=== PATIENT | male | born 1955 | race Caucasian/White ===

== ENCOUNTER 2017-07-22 02:17 | Emergency (ER) | payer OTHER ==
[~2017-07-22] VITALS: Ht 180.3 cm; Wt 106.6 kg
[2017-07-22 02:54] VITALS: BP 126/84
[2017-07-22 03:29] LABS: ABSOLUTE BASOPHIL COUNT 0.1 /CUMM (0.0-0.2); ABSOLUTE EOSINOPHIL COUNT 0.2 /CUMM (0.0-0.7); ABSOLUTE GRANULOCYTE CT 8.4 /CUMM (1.4-6.5); ABSOLUTE LYMPH COUNT 2.3 /CUMM (1.2-3.4); ABSOLUTE MONOCYTE COUNT 0.9 /CUMM (0.10-0.60); BASOPHIL % 0.5 % (0.0-2.0); EOSINOPHIL % 1.5 % (0-5); GRANULOCYTE % 70.9 % (42.2-75.2); HEMATOCRIT 43.7 % (42-52); MEAN CORPUSCULAR HGB 29.5 PG (27.0-31.0); MEAN CORPUSCULAR HGB CONC 32.9 G/DL (33.0-37.0); MEAN CORPUSCULAR VOLUME 89.8 FL (80.0-94.0); MEAN PLATELET VOLUME 9.9 FL (7.4-10.4); PLATELET COUNT 244 /CUMM (130-400); RBC DISTRIBUTION WIDTH 13.3 % (11.5-14.5); RED BLOOD CELL CT 4.87 /CUMM (4.70-6.10); WHITE BLOOD CELL COUNT 11.9 /CUMM (4.8-10.8)
--- NOTE | 2017-07-22 03:42 | ED UPPER/LOWER EXTREMITY COMPL ---
History of Present Illness General Chief Complaint: Lower Extremity Problems Stated Complaint: LEFT KNEE PAIN AND SWOLLEN Source: patient, family, old records Exam Limitations: no limitations Vital Signs & Intake/Output Vital Signs & Intake/Output Vital Signs Date Time Temp Pulse Resp B/P B/P Pulse O2 O2 Flow FiO2 Mean Ox Delivery Rate 07/22 0254 96.7 86 20 126/84 97 Allergies Coded Allergies: NO KNOWN ALLERGIES (11/04/12) Core Measure Meds Pre-Hospital aspirin Triage Note: PER PAIN TO [facility]LE FOR WEEKS SAW DR BANUELOS AND IS BEING SCHEDULED FOR OUTPT US AND XR. TONIGHT CALF SKIN IS TIGHT. SO DECIDED IT NEEDS TO BE SEEN NOW Triage Nurses Notes Reviewed? yes Onset: Last week Duration: week(s):, constant, continues in ED, getting worse Timing: recent history Severity: moderate, severe Pain/Injury Location: Bilateral: Leg. Modifying Factors: Improves With: rest. Worsens With: jarring, movement. Associated Symptoms: swelling, GCS 15 since, stiffness HPI: 2 weeks prior to admission patient notes left greater than right swelling in the lower legs causing pain with weightbearing and palpation. He saw his PMD and is scheduled for ultrasound and x-ray on Sunday prescribed Mobic for discomfort. He denies fever chills nausea vomiting diarrhea abdominal pain chest pain shortness breath headache dysuria rash bleeding injury. Past History Travel History Traveled to [place] past 21 day No Medical History Any Pertinent Medical History? see below for history Neurological: NONE EENT: NONE Cardiovascular: myocardial infarction Respiratory: POST NASAL DRIP Gastrointestinal: NONE Hepatic: NONE Renal: NONE Musculoskeletal: NONE Psychiatric: NONE Endocrine: NONE History of MRSA: No History of VRE: No History of CDIFF: No Surgical History Surgical History: non-contributory Psychosocial History Who do you live with Family What is your primary language [place] Tobacco Use: Current Not Daily Daily Tobacco Use Amount/Type: =< 4 Cigarettes daily Family History Hx Contributory? No Review of Systems Review of Systems Constitutional: Reports: no symptoms. EENTM: Reports: no symptoms. Respiratory: Reports: no symptoms. Cardiovascular: Reports: see HPI, edema. Gastrointestinal/Abdominal: Reports: no symptoms. Genitourinary: Reports: no symptoms. Musculoskeletal: Reports: see HPI, muscle pain. Skin: Reports: no symptoms. Neurological/Psychological: Reports: no symptoms. Hematologic/Endocrine: Reports: no symptoms. Immunological: Reports: no symptoms. All Other Systems: Reviewed and Negative Physical Exam Physical Exam General Appearance: well developed/nourished, alert, awake, anxious, mild distress, obese Head: atraumatic, normal appearance Eyes: Bilateral: normal appearance, PERRL, EOMI. Ears, Nose, Throat: normal pharynx, normal ENT inspection, hearing grossly normal Neck: normal inspection, supple, full range of motion, no midline tenderness Cardiovascular/Respiratory: normal breath sounds, normal peripheral pulses, regular rate/rhythm, no respiratory distress Peripheral Pulses: 4+ carotid (R), 4+ carotid (L) Back: normal inspection, normal range of motion, no vertebral tenderness Shoulder Left: normal range of motion, normal inspection Shoulder Right: normal range of motion, normal inspection Elbow Left: normal range of motion, normal inspection Elbow Right: normal range of motion, normal inspection Hand Left: normal inspection, normal range of motion Hand Right: normal inspection, normal range of motion Upper Extremity Reflexes: 2+: bicep (R), bicep (L). Leg Left: normal range of motion, swelling, tenderness, soft tissue tenderness Leg Right: normal range of motion, swelling, pain, soft tissue tenderness Hip Left: normal range of motion, normal inspection Hip Right: normal range of motion, normal inspection Knee Left: normal range of motion, normal inspection Knee Right: normal range of motion, normal inspection Foot Left: normal inspection, normal range of motion Foot Right: normal inspection, normal range of motion Lower Extremity Reflexes: 2+: knee (R), knee (L). Neurologic/Tendon: normal sensation, normal motor functions, normal tendon functions Skin: intact, normal color, warm/dry Lymphatic: no anterior cervical russel Progress Differential Diagnosis: CHF, DVT, dependent edema Plan of Care: Orders Procedure Date/time Status TROPONIN LEVEL 07/22 306 Complete MAGNESIUM 07/22 306 Complete D-DIMER 07/22 306 Complete COMPREHENSIVE METABOLIC PANEL 07/22 306 Complete CBC WITHOUT DIFFERENTIAL 07/22 306 Complete B-TYPE NATRIURETIC PEP (BNP) 07/22 306 Complete EKG 07/22 306 Active Laboratory Tests 07/22/17 0320: Anion Gap 11, Estimated GFR > 60, BUN/Creatinine Ratio 22.7, Glucose 97, Calcium 10.0, Magnesium 1.9, Total Bilirubin 0.5, AST 22, ALT 41, Alkaline Phosphatase 98, Troponin I < 0.01, Pyl-E-Zmgqwovbtsx Pept 66.6, Total Protein 7.1, Albumin 4.1, Globulin 3.0, Albumin/Globulin Ratio 1.4, D-Dimer High Sensitivty < 200, CBC w Diff NO MAN DIFF REQ, RBC 4.87, MCV 89.8, MCH 29.5, MCHC 32.9 L, RDW 13.3 , MPV 9.9, Gran % 70.9, Lymphocytes % 19.5 L, Monocytes % 7.6, Eosinophils % 1.5, Basophils % 0.5, Absolute Granulocytes 8.4 H, Absolute Lymphocytes 2.3, Absolute Monocytes 0.9 H, Absolute Eosinophils 0.2, Absolute Basophils 0.1 Initial ED EKG: normal axis, normal intervals, normal p-waves, normal QRS complex, normal sinus rhythm, no ST T wave changes Prior EKG: unchanged Rhythm Strip: normal sinus rhythm Departure Departure Time of Disposition: 405 Disposition: HOME OR SELF CARE Condition: Stable Clinical Impression Primary Impression: Dependent edema Referrals: Juliane SAMAYOA,Librado Haney (PCP/Family) Departure Forms: Customer Survey General Discharge Information Prescriptions: Current Visit Scripts Furosemide (Lasix) 1 TAB PO DAILY #30 TAB Use for one week, checking weight daily.
[2017-07-22] MEDS ORDERED: LASIX20 M1 PO (04:08)
== END 2017-07-22 04:39 ==
LOC: ERH 02:17
PROVIDERS: Emergency Medicine
DX: R60.9 Edema, unspecified (principal)
CPT/HCPCS: 93005; 93010

== ENCOUNTER → 2017-11-12 | Day surgery (SDC) | payer OTHER ==
[~2017-11-12] VITALS: Ht 180.3 cm; Wt 106.6 kg
[~2017-11-12] MED LIST: LASIX20 M1 PO
--- NOTE | 2017-11-13 21:10 | RADIOLOGY REPORT ---
EXAMINATION: CR LEFT KNEE/INTRAOPERATIVE FLUOROSCOPY CLINICAL INDICATION: Left subchondral plasty. COMPARISON: Left knee MRI scan dated 10/10/2017. TECHNIQUE/FINDINGS: Fluoroscopic equipment was dedicated to the operating room for the performance of an intraoperative procedure. Several (8) spot films were acquired and are archived in PACS. Please refer to operative notes for procedural detail. FLUOROSCOPY TIME: 46 seconds. IMPRESSION: Administrative dictation for intraoperative fluoroscopy and image archiving in PACS. Please refer to operative notes for details.
--- NOTE | 2017-11-19 08:52 | Operative Report ---
Operative/Inv Procedure Report Surgery Date: 11/12/17 Name of Procedure: #1 left knee partial medial meniscectomy #2 sub-chondroplasty left tibial plateau Pre-Operative Diagnosis: #1 left knee medial meniscal tear #2 left knee osteoarthritis #3 tibial insufficiency Post-Operative Diagnosis: Same Estimated Blood Loss: scant Surgeon/Fiction And Nonfiction Author: Karen SAMAYOA,Arya Anesthesia: laryngeal mask airway Drains: None Specimens: None Complications: None Condition: Stable Operative Indication: Patient is a 62-year-old man who has a history of left knee pain. He was treated conservatively for a period of time. Due to ongoing symptoms, further imaging was obtained which confirmed medial meniscal pathology. He had mild arthritis based on x-ray and MRI but had edema within the tibial plateau medially consistent with insufficiency due to the arthritis. Due to lack of improvement with conservative measures, he wished to proceed with arthroscopic management of the problem. Risks benefits and expectations were discussed which included but were not limited to persistent knee pain, need for subsequent surgery, advancement of the arthritis, anesthesia risks infection injury to blood vessel or nerve. Operative/Procedure Note Note: Patient was brought to the operating room and transferred to the operating table area once under appropriate anesthesia the left lower extremity was prepped and draped in standard fashion. Preoperative IV antibiotic's were given prophylactically. A standard infrapatellar lateral portal site was established. Scope was inserted. Patellofemoral compartment was visualized there was some moderate grade 2-3 changes of chondromalacia on the undersurface of the patella which would be later addressed in the case. I dropped down into the medial compartment. The medial meniscus was found to be intact in its anterior horn but there was a tear between the mid body to the posterior horn. This was confirmed after establishing a medial infrapatellar portal site under direct vision. There were grade 2 changes of chondral malacia in the trochlear surface of the distal femur.. 3 changes in the weightbearing portion of the medial femoral condyle. I used the shaver to complete a chondroplasty of the femoral condylar surface. I then proceeded to use a straight biter followed by shaver to complete the partial medial meniscectomy. The remaining medial meniscus was found to be intact and stable. Copious irrigation the medial compartment followed. I then entered the notch. The ACL was found to be intact to visualization and direct probing. Some mild synovitic changes. I placed leg into a figure 4 position and then visualized the lateral meniscus which appeared to be intact with some mild fraying along the central edges. I entered the lateral gutter. No evidence of loose bodies. I went up to the patellofemoral compartment and used the shaver to remove any loose articular cartilage frayed fragments from the undersurface of the patella. Copious irrigation the knee followed I removed all fluid and instruments. I then turned my attention to the second part of the case which was the sub-chondroplasty. I used fluoroscopy to identify my starting position using the sub-chondroplasty equipment. The guidepin was inserted in the anticipated area of the lesion based on preoperative templating and preoperative MRI area I was satisfied with position of the second guidewire. I left the first guidewire in place for placement purposes but also to decrease the risk of extravasation of the injectable bone substitute. After confirming position on AP and lateral the bone substitute paste was injected in the lesion facing superior first and then inferior and in between obliquely to fill the lesion. Once I completed this and allowed the 8 minutes to pass I removed the cannulas. I did check fluoroscopic images. There was some evidence of extravasation of some of the injected material in the soft tissues around the lesion. Due to this I extended one of the insertion holes for the cannula distally and irrigated the material out. Did some digital manipulation in this area also to remove the small access of material in order to avoid any sort of tendon impingement. After this was done copious irrigation followed. I then closed the soft tissue over with 3-0 Vicryl suture. Skin was closed with nylon suture. The portal sites were then used to enter the knee joint again to make sure there was no intra-articular extravasation of the material. There was no evidence of that. Copious irrigation of the knee joint followed again and then I then removed all fluid and instruments from the knee and closed the portal sites with interrupted nylon sutures. Appropriate dressings were applied and patient was awakened and taken to recovery room in good condition. Blood loss was minimal Discharge Disposition: PACU
== END ==
LOC: STS 00:53
DX: M23.204 Derangement of unspecified medial meniscus due to old tear or injury, left knee (principal); M17.12 Unilateral primary osteoarthritis, left knee; M94.262 Chondromalacia, left knee; I73.9 Peripheral vascular disease, unspecified; I10 Essential (primary) hypertension; I25.10 Atherosclerotic heart disease of native coronary artery without angina pectoris; Z87.891 Personal history of nicotine dependence; I25.2 Old myocardial infarction
CPT/HCPCS: 73560-LT; J0690; J2250; J3490